=== PATIENT | male | born 1995 | race Caucasian/White ===

== ENCOUNTER 2017-07-25 07:57 | Day surgery (SDC) | payer OTHER ==
[2017-07-25] MEDS: POLYMYXIN/BACITRACIN 1L IRRIG IRR
[2017-07-25] MEDS: BUPIVACAINE 0.25% (MPF) 30 ML INJ
[~2017-07-25 07:57] MED LIST: CEFAZOLIN 1 GM INJ; HYDROmorphONE 2 MG/ML SYG; METOCLOPRAMIDE 10 MG INJ
[2017-07-25] MEDS ORDERED: SOD CHLORIDE 0.9% 1,000 ML IV (08:00)
[2017-07-25] MEDS ORDERED: CEFAZOLIN 2 GM/50 ML (PMX) 50 ML IVPB (08:00)
[2017-07-25] MEDS ORDERED: MIDAZOLAM 1 MG/ML 2 ML INJ (09:04)
[2017-07-25] MEDS ORDERED: PROPOFOL 20 ML (09:05)
[2017-07-25] MEDS ORDERED: LIDOCAINE 2% (SDV) 5 ML INJ (09:05)
[2017-07-25] MEDS ORDERED: FENTAnyl 50 MCG/ML VIAL (09:05)
[2017-07-25] MEDS ORDERED: ONDANSETRON 4 MG INJ ×2 (09:06→11:54)
[2017-07-25] MEDS ORDERED: PHENYLephrine (100 MCG/ML) 5ML SYG (09:28)
[2017-07-25] MEDS ORDERED: SUGAMMADEX SODIUM 200 MG/2 ML VIAL IV (09:34)
[2017-07-25] MEDS ORDERED: MEPERIDINE 25 MG INJ (11:54)
[2017-07-25] MEDS ORDERED: HYDROmorphONE (0.2 MG/ML) 10ML SYG IV ×2 (12:00)
[2017-07-25] MEDS: HYDROCODONE/APAP (5/325) TAB PO (12:00)
[2017-07-25] MEDS ORDERED: LABETALOL HCL 20MG INJ IV (12:00)
[2017-07-25] MEDS ORDERED: KETOROLAC 30 MG INJ IV (12:00)
[2017-07-25] MEDS ORDERED: FENTAnyl 50 MCG/ML VIAL IV (12:00)
[2017-07-25] MEDS ORDERED: DIPHENHYDRAMINE 50 MG INJ IV (12:00)
[2017-07-25] MEDS: HYDROmorphONE (0.2 MG/ML) 10ML SYG IV ×4 (12:09→12:53)
[2017-07-25] MEDS: MEPERIDINE 25 MG INJ IV ×2 (12:09→12:53)
[2017-07-25] MEDS: ONDANSETRON 4 MG INJ IV (12:09)
[2017-07-25] MEDS: hydrALAzine 20 MG INJ IV ×2 (12:19→12:35)
[2017-07-25] MEDS: FENTAnyl 50 MCG/ML VIAL IV ×2 (12:20→12:35)
== END 2017-07-25 13:55 | disposition home or self-care (01) ==
LOC: SDS 07:57
DX: K40.30 Unilateral inguinal hernia, with obstruction, without gangrene, not specified as recurrent (principal)
CPT/HCPCS: 49507; 88302